=== PATIENT | female | born 1960 | race Hispanic/Latino ===

== ENCOUNTER 2018-11-11 00:37 | Inpatient (IN) | payer OTHER ==
[2018-11-11] MEDS ORDERED: DILAUDID IV ONE (01:00)
[2018-11-11] MEDS ORDERED: NACL 0.9% 1000 ML 1,000 ML IV ONE (01:00)
[2018-11-11] MEDS ORDERED: ZOFRAN IV ONE (01:00)
--- NOTE | 2018-11-11 01:03 | Emergency Department Report ---
ED Abdominal Pain HPI - General Chief Complaint: Abdominal Pain Stated Complaint: ABD PAIN Time Seen by Provider: 11/11/18 00:51 Source: patient, EMS (ems notes not available at time of chart dictation) Mode of arrival: Stretcher Limitations: Physical Limitation - History of Present Illness Initial Comments: This is a 58-year-old female. The patient is not known to this provider previously. Reports a history of diabetes, high cholesterol, history of incisional hernia, secondary to , and possible . Patient presents to the emergency room today with complaint of nontraumatic right-sided abdominal pain. The pain is present for the past 30-36 hours. It is sharp and constant, associated with nausea and vomiting. There are no i rritative urinary symptoms, the patient denies fever, the patient reports that she defecated today. She has never had pain like this before. The pain does not radiate anywhere. It increases with palpation, twisting, range of motion, and decreases with rest. Denies headache, neck pain, chest pain, focal extremity weakness, numbness. MD Complaint: abdominal pain, flank pain -: Gradual Location: RUQ, RLQ, R flank Radiation: none Severity scale (0 -10): 10 Quality: cramping, stabbing Consistency: other Improves With: medication Worsens With: movement Associated Symptoms: nausea, vomiting, anorexia. denies: diarrhea, fever, chills, constipation, dysuria, hematemesis, hematochezia, melena, hematuria, syncope - Related Data Allergies Allergy/AdvReac Type Severity Reaction Status Date / Time Penicillins Allergy Anaphylaxis Verified 11/11/18 00:44 ED Review of Systems ROS: Stated complaint: ABD PAIN Other details as noted in HPI Constitutional: malaise. denies: fever Eyes: denies: eye discharge ENT: denies: epistaxis Respiratory: denies: cough Cardiovascular: denies: chest pain Gastrointestinal: abdominal pain, nausea, vomiting Genitourinary: denies: dysuria Musculoskeletal: myalgia Skin: denies: lesions Neurological: weakness Psychiatric: anxiety ED Past Medical Hx - Past Medical History Previous Medical History?: Yes Hx Diabetes: Yes (type 2) - Surgical History Past Surgical History?: Yes Additional Surgical History: ovarian cancer, Hysterectomy, hernia - Social History Smoking Status: Never Smoker Substance Use Type: Marijuana ED Physical Exam - General Limitations: No Limitations, Physical Limitation General appearance: alert, in distress, obese - Head Head exam: Present: atraumatic, normocephalic - Eye Eye exam: Present: normal appearance, EOMI. Absent: nystagmus - ENT ENT exam: Present: normal exam, normal orophraynx, mucous membranes moist, normal external ear exam - Neck Neck exam: Present: normal inspection, full ROM. Absent: tenderness, meningismus - Respiratory Respiratory exam: Present: normal lung sounds bilaterally. Absent: respiratory distress - Cardiovascular Cardiovascular Exam: Present: regular rate, normal rhythm, normal heart sounds. Absent: bradycardia, tachycardia, irregular rhythm, systolic murmur, diastolic murmur, rubs, gallop - GI/Abdominal GI/Abdominal exam: Present: soft, tenderness, guarding (voluntary guarding noted in the right flank). Absent: distended, rebound, rigid, pulsatile mass - Extremities Exam Extremities exam: Present: normal inspection, full ROM, other (2+ pulses noted in the bilateral upper, lower extremities. Compartments soft. No long bony tenderness. The pelvis is stable.). Absent: calf tenderness - Back Exam Back exam: Present: normal inspection, full ROM. Absent: tenderness, CVA tenderness (R), paraspinal tenderness, vertebral tenderness - Neurological Exam Neurological exam: Present: alert, other (Extraocular movements intact. Tongue midline. No facial droop. Facial sensation intact to light touch in the V1, V2, V3 distribution bilaterally. 5 and 5 strength in 4 extremities.. Sensation is intact to light touch in 4 extremities.). Absent: motor sensory deficit - Psychiatric Psychiatric exam: Present: anxious - Skin Skin exam: Present: warm, dry, intact, normal color. Absent: rash ED Course Vital Signs 11/11/18 11/11/18 00:55 02:00 Temperature 98.3 F Pulse Rate 79 92 H Respiratory 16 15 Rate Blood Pressure 150/112 Blood Pressure 120/68 [Left] O2 Sat by Pulse 100 99 Oximetry - Reevaluation(s) Reevaluation #1: 11/11/18 02:58 Differential diagnosis, including not limited to: Cholecystitis, pyelonephritis, renal colic, appendicitis, colitis, obstruction, volvulus, inflammatory bowel disease, phlegmon Assessment and plan: 58-year-old female with tender abdomen, nausea and vomiting. Appears uncomfortable. Screening laboratory studies reviewed, thus far unremarkable, not consistent with urinary tract infection. X-ray of the chest, abdomen, pelvis did not demonstrate evidence of perforated viscus. Patient is treated with Dilaudid, Zofran, fluids, fentanyl, and a CT scan of the abdomen and pelvis has been obtained. Interpretation pending. Reevaluation #2: 11/11/18 03:55 CT scan suggests acute appendicitis. Patient endorses anaphylactic symptoms to penicillin, and is therefore given Levaquin and metronidazole. She declines additional pain medication at this time. Discussed with general surgeon on-call, Dr. Schulte, was going to come by to evaluate the patient, and likely take the patient to the operating room. Presented case a hospital physician, Dr. Corey Garcia, who will accept the patient to the medical service, with general surgical consultation, in accordance with [facility] policies. Patient is made nothing by mouth, she is informed of her findings, and she is amenable to admission to the hospital at this point in time. ED Medical Decision Making - Lab Data Result diagrams: 11/11/18 01:27 11/11/18 01:27 Vital Signs 11/11/18 11/11/18 00:55 02:00 Temperature 98.3 F Pulse Rate 79 92 H Respiratory 16 15 Rate Blood Pressure 150/112 Blood Pressure 120/68 [Left] O2 Sat by Pulse 100 99 Oximetry Lab Results 11/11/18 11/11/18 11/11/18 Range/Units 01:27 01:27 01:27 WBC 7.7 (4.5-11.0) K/mm3 RBC 4.91 (3.65-5.03) M/mm3 Hgb 14.8 H (10.1-14.3) gm/dl Hct 44.1 H (30.3-42.9) % MCV 90 (79-97) fl MCH 30 (28-32) pg MCHC 34 (30-34) % RDW 14.1 (13.2-15.2) % Plt Count 277 (140-440) K/mm3 Lymph % (Auto) 10.5 L (13.4-35.0) % [place] % (Auto) 6.6 (0.0-7.3) % Eos % (Auto) 0.3 (0.0-4.3) % Baso % (Auto) 0.5 (0.0-1.8) % Lymph # 0.8 L (1.2-5.4) K/mm3 [place] # 0.5 (0.0-0.8) K/mm3 Eos # 0.0 (0.0-0.4) K/mm3 Baso # 0.0 (0.0-0.1) K/mm3 Seg Neutrophils % 82.1 H (40.0-70.0) % Seg Neutrophils # 6.3 (1.8-7.7) K/mm3 PT 12.7 (12.2-14.9) Sec. INR 0.91 (0.87-1.13) APTT 21.3 L (24.2-36.6) Sec. Sodium 135 L (137-145) mmol/L Potassium 3.7 (3.6-5.0) mmol/L Chloride 96.9 L (98-107) mmol/L Carbon Dioxide 25 (22-30) mmol/L Anion Gap 17 mmol/L BUN 7 (7-17) mg/dL Creatinine 0.5 L (0.7-1.2) mg/dL Estimated GFR > 60 ml/min BUN/Creatinine Ratio 14 % Glucose 285 H (65-100) mg/dL Lactic Acid (0.7-2.0) mmol/L Calcium 9.5 (8.4-10.2) mg/dL Total Bilirubin 0.50 (0.1-1.2) mg/dL AST 12 (5-40) units/L ALT 17 (7-56) units/L Alkaline Phosphatase 96 (35-129) units/L Total Creatine Kinase 37 (30-135) units/L Total Protein 6.7 (6.3-8.2) g/dL Albumin 4.3 (3.9-5) g/dL Albumin/Globulin Ratio 1.8 % Lipase 33 (13-60) units/L Urine Color (Yellow) Urine Turbidity (Clear) Urine pH (5.0-7.0) Ur Specific [place] (1.003-1.030) Urine Protein (Negative) mg/dL Urine Glucose (UA) (Negative) mg/dL Urine Ketones (Negative) mg/dL Urine Blood (Negative) Urine Nitrite (Negative) Urine Bilirubin (Negative) Urine Urobilinogen (<2.0) mg/dL Ur Leukocyte Esterase (Negative) Urine WBC (Auto) (0.0-6.0) /HPF Urine RBC (Auto) (0.0-6.0) /HPF U Epithel Cells (Auto) (0-13.0) /HPF Blood Type Antibody Screen 11/11/18 11/11/18 11/11/18 Range/Units 01:27 01:27 02:26 WBC (4.5-11.0) K/mm3 RBC (3.65-5.03) M/mm3 Hgb (10.1-14.3) gm/dl Hct (30.3-42.9) % MCV (79-97) fl MCH (28-32) pg MCHC (30-34) % RDW (13.2-15.2) % Plt Count (140-440) K/mm3 Lymph % (Auto) (13.4-35.0) % [place] % (Auto) (0.0-7.3) % Eos % (Auto) (0.0-4.3) % Baso % (Auto) (0.0-1.8) % Lymph # (1.2-5.4) K/mm3 [place] # (0.0-0.8) K/mm3 Eos # (0.0-0.4) K/mm3 Baso # (0.0-0.1) K/mm3 Seg Neutrophils % (40.0-70.0) % Seg Neutrophils # (1.8-7.7) K/mm3 PT (12.2-14.9) Sec. INR (0.87-1.13) APTT (24.2-36.6) Sec. Sodium (137-145) mmol/L Potassium (3.6-5.0) mmol/L Chloride (98-107) mmol/L Carbon Dioxide (22-30) mmol/L Anion Gap mmol/L BUN (7-17) mg/dL Creatinine (0.7-1.2) mg/dL Estimated GFR ml/min BUN/Creatinine Ratio % Glucose (65-100) mg/dL Lactic Acid 1.30 (0.7-2.0) mmol/L Calcium (8.4-10.2) mg/dL Total Bilirubin (0.1-1.2) mg/dL AST (5-40) units/L ALT (7-56) units/L Alkaline Phosphatase (35-129) units/L Total Creatine Kinase (30-135) units/L Total Protein (6.3-8.2) g/dL Albumin (3.9-5) g/dL Albumin/Globulin Ratio % Lipase (13-60) units/L Urine Color Yellow (Yellow) Urine Turbidity Clear (Clear) Urine pH 5.0 (5.0-7.0) Ur Specific [place] 1.029 (1.003-1.030) Urine Protein 30 mg/dl (Negative) mg/dL Urine Glucose (UA) >500 (Negative) mg/dL Urine Ketones 80 (Negative) mg/dL Urine Blood Negative (Negative) Urine Nitrite Negative (Negative) Urine Bilirubin Negative (Negative) Urine Urobilinogen < 2.0 (<2.0) mg/dL Ur Leukocyte Esterase Negative (Negative) Urine WBC (Auto) 4.0 (0.0-6.0) /HPF Urine RBC (Auto) 2.0 (0.0-6.0) /HPF U Epithel Cells (Auto) 1.0 (0-13.0) /HPF Blood Type A POSITIVE Antibody Screen Negative - Radiology Data Radiology results: report reviewed, image reviewed [facility] [address] [place] [address] XRay Report Signed Patient: NIKUNJ AIKEN MR#: [id number] : 1960 Acct:[id number] Age/Sex: 58 / F ADM Date: 11/11/18 Loc: ED Attending Dr: Ordering Physician: NORRIS GREEN MD Date of Service: 11/11/18 Procedure(s): XR abd series w cxr 1V Accession Number(s): [id number] cc: NORRIS GREEN MD Fluoro Time In Minutes: FINAL REPORT PROCEDURE: XR ABD SERIES W CXR 1V TECHNIQUE: Abdominal series complete, including supine and upright AP views of the abdomen and frontal chest. HISTORY: abd pain COMPARISON: No prior studies are available for comparison. FINDINGS: Heart: Normal. Mediastinum/Vessels: Normal. Lungs/Pleural space: There are fibrotic changes at the left lung base. There are no infiltrates.. Bowel gas pattern: There is no bowel obstruction or fecal impaction. There is no bowel wall thickening.. Masses or calcifications: None. Bony structures: No acute osseous abnormality. Other: No free intraperitoneal air. IMPRESSION: No acute abnormality. Transcribed By: CO Dictated By: CHELA WOODSON MD Electronically Authenticated By: CHELA WOODSON MD Signed Date/Time: 11/11/18 0147 Referring Physician: NORRIS GREEN Patient Name: NIKUNJ AIKEN Date of : 1960 Sex: Female Report Date: 2018-11-11 Report Status: Finalized [place] [id number] Cat Scan Report Signed Patient: NIKUNJ AIKEN MR#: [id number] : 1960 Acct:[id number] Age/Sex: 58 / F ADM Date: 11/11/18 Loc: ED Attending Dr: Ordering Physician: NORRIS GREEN MD Date of Service: 11/11/18 Procedure(s): CT abdomen pelvis w con Accession Number(s): [id number] cc: NORRIS GREEN MD FINAL REPORT PROCEDURE: CT ABDOMEN PELVIS W CON TECHNIQUE: Computerized axial tomography of the abdomen and pelvis was performed after the IV injection of iodinated nonionic contrast. HISTORY: rigth sided abd pain COMPARISON: No prior studies are available for comparison. FINDINGS: Visualized lower thorax: No significant abnormality. Liver: Normal size and attenuation. Spleen: Normal size and attenuation. Gallbladder and biliary system: Normal. Pancreas: Normal. Adrenals: Normal. Kidneys: Normal. GI tract: The appendix is distended and fluid-filled measuring up to 13 millimeters in diameter. There inflammation of the surrounding fat. Findings are consistent with acute appendicitis. There is no perforation. The appendix is positioned near the umbilicus. There is no bowel obstruction, colitis or enteritis. There are diverticula of the sigmoid and left colon. There is no diverticulitis.. Lymph nodes and mesentery: Normal. Vasculature: Normal. Bladder: Normal. Reproductive organs: There has been a hysterectomy.. Peritoneum: There is no ascites or free air, abscess or adenopathy.. Musculoskeletal structures: No significant abnormality. Other: There is an umbilical hernia containing fat only.. IMPRESSION: Acute appendicitis. Dr. Javier was notified by telephone at 2:40 a.m. central time. Transcribed By: CO Dictated By: CHELA WOODSON MD Electronically Authenticated By: CHELA WOODSON MD Signed Date/Time: 11/11/18 8189 Critical care attestation.: If time is entered above; I have spent that time in minutes in the direct care of this critically ill patient, excluding procedure time. ED Disposition Clinical Impression: Acute appendicitis Qualifiers: Acute appendicitis type: with localized peritonitis Appendicitis gangrene presence: unspecified whether gangrene present Appendicitis perforation presence: without perforation Appendicitis abscess presence: unspecified whether abscess present Qualified Code(s): K35.30 - Acute appendicitis with localized peritonitis, without perforation or gangrene Disposition: DC-09 OP ADMIT IP TO THIS HOSP Is pt being admited?: Yes Does the pt Need Aspirin: No Condition: Good Instructions: Abdominal Pain (ED) Referrals: KYLE ZEPEDA MD [Primary Care Provider] - 3-5 Days
--- NOTE | 2018-11-11 01:47 | XRay Report ---
FINAL REPORT PROCEDURE: XR ABD SERIES W CXR 1V TECHNIQUE: Abdominal series complete, including supine and upright AP views of the abdomen and front al chest. HISTORY: abd pain COMPARISON: No prior studies are available for comparison. FINDINGS: Heart: Normal. Mediastinum/Vessels: Normal. Lungs/Pleural space: There are fibrotic changes at the left lung base. There are no infiltrates.. Bowel gas pattern: There is no bowel obstruction or fecal impaction. There is no bowel wall thickenin g.. Masses or calcifications: None. Bony structures: No acute osseous abnormality. Other: No free intraperitoneal air. IMPRESSION: No acute abnormality.
[2018-11-11 01:49] LABS: Hematocrit 44.1 % (30.3-42.9); Hemoglobin 14.8 gm/dl (10.1-14.3); Mean Corpuscular Volume 90 fl (79-97); Red Blood Count 4.91 M/mm3 (3.65-5.03)
[2018-11-11 01:50] LABS: Basophils % (Auto) 0.5 % (0.0-1.8); Eosinophils % (Auto) 0.3 % (0.0-4.3); Lymphocytes # (Auto) 0.8 K/mm3 (1.2-5.4); Lymphocytes % (Auto) 10.5 % (13.4-35.0); Mean Corpuscular HGB Conc 34 % (30-34); Monocytes # (Auto) 0.5 K/mm3 (0.0-0.8); Monocytes % (Auto) 6.6 % (0.0-7.3); Platelet Count 277 K/mm3 (140-440); Red Cell Distribution Width 14.1 % (13.2-15.2)
[2018-11-11] MEDS ORDERED: SUBLIMAZE IV ONE ×2 (01:59→04:31)
[2018-11-11] MEDS ORDERED: REGLAN IV ONE (01:59)
[2018-11-11 02:01] LABS: INR 0.91 (0.87-1.13); Partial Thromboplastin Time 21.3 Sec. (24.2-36.6)
[2018-11-11 02:09] LABS: Alanine Aminotransferase 17 units/L (7-56); Albumin 4.3 g/dL (3.9-5); BUN/Creatinine Ratio 14; Blood Urea Nitrogen 7 mg/dL (7-17); Calcium 9.5 mg/dL (8.4-10.2); Hemolysis Index 8
[2018-11-11 02:42] LABS: Bilirubin,Urine Negative (Negative); Blood,Urine Negative (Negative); Color,Urine Yellow (Yellow)
[2018-11-11 02:43] LABS: Urobilinogen,Urine < 2.0 mg/dL (<2.0)
[2018-11-11] MEDS ORDERED: LEVAQUIN 750MG/150ML 750 MG/150 ML BAG IV ONE (03:42)
[2018-11-11] MEDS ORDERED: FLAGYL 500 MG/100 ML 500 MG/100 ML BAG IV ONE (03:42)
--- NOTE | 2018-11-11 03:44 | Cat Scan Report ---
FINAL REPORT PROCEDURE: CT ABDOMEN PELVIS W CON TECHNIQUE: Computerized axial tomography of the abdomen and pelvis was performed after the IV inject ion of iodinated nonionic contrast. HISTORY: rigth sided abd pain COMPARISON: No prior studies are available for comparison. FINDINGS: Visualized lower thorax: No significant abnormality. Liver: Normal size and attenuation. Spleen: Normal size and attenuation. Gallbladder and biliary system: Normal. Pancreas: Normal. Adrenals: Normal. Kidneys: Normal. GI tract: The appendix is distended and fluid-filled measuring up to 13 millimeters in diameter. Ther e inflammation of the surrounding fat. Findings are consistent with acute appendicitis. There is no p erforation. The appendix is positioned near the umbilicus. There is no bowel obstruction, colitis or enteritis. There are diverticula of the sigmoid and left co slime. There is no diverticulitis.. Lymph nodes and mesentery: Normal. Vasculature: Normal. Bladder: Normal. Reproductive organs: There has been a hysterectomy.. Peritoneum: There is no ascites or free air, abscess or adenopathy.. Musculoskeletal structures: No significant abnormality. Other: There is an umbilical hernia containing fat only.. IMPRESSION: Acute appendicitis. Dr. Javier was notified by telephone at 2:40 a.m. central time.
[2018-11-11] MEDS ORDERED: ZOFRAN IV PRN (04:20)
[2018-11-11] MEDS ORDERED: TYLENOL PR PRN (04:23)
[2018-11-11] MEDS ORDERED: D50W (25GM) Syringe IV PRN (04:24)
--- NOTE | 2018-11-11 04:39 | History and Physical Report ---
History of Present Illness Date of examination: 11/11/18 Date of admission: 11/11/2018 Chief complaint: Chief complaint is abdominal pain History of present illness: History of present illness, patient is a 58-year-old female who has been having right lower quadrant abdominal pain going on for about 24 hours, pain is severe in intensity and was associated with nausea but no vomiting. There is also associated history of chills but no fever, patient denied history of diarrhea or constipation and said that the pain became progressively worse and this made her come to the emergency room. Past History Past Medical History: cancer, diabetes, hyperlipidemia Past Surgical History: hysterectomy, hernia repair Social history: lives with family, other (USES [employer]) Family history: no significant family history Medications and Allergies Allergies Allergy/AdvReac Type Severity Reaction Status Date / Time Penicillins Allergy Anaphylaxis Verified 11/11/18 00:44 Active Meds: Active Medications Acetaminophen (Tylenol) 650 mg [place] Q4H PRN PRN Reason: Fever >101 Dextrose (D50w (25gm) Syringe) 50 ml IV PRN PRN PRN Reason: Hypoglycemia Hydromorphone HCl (Dilaudid) 1 mg IV Q4H PRN PRN Reason: Pain , Severe (7-10) Levofloxacin/Dextrose (Levaquin 750mg/150ml) 750 mg in 150 mls @ 100 mls/hr IV ONCE ONE Stop: 11/11/18 05:11 Levofloxacin/Dextrose (Levaquin 750mg/150ml) 750 mg in 150 mls @ 100 mls/hr IV Q24HR VICTORIA; Protocol Metronidazole (Flagyl 500 Mg/100 Ml) 500 mg in 100 mls @ 100 mls/hr IV Q8HR VICTORIA; Protocol Sodium Chloride (Nacl 0.9% 1000 Ml) 1,000 mls @ 100 mls/hr IV DIRECT VICTORIA Insulin Human Regular (Humulin R) 0 units SUB-Q Q4HR VICTORIA; Protocol Ondansetron HCl (Zofran) 4 mg IV Q8H PRN PRN Reason: Nausea And Vomiting Review of Systems Constitutional: chills, no weight loss, no weight gain, no fever, no sweats, no night sweats, no weakness, no malaise, no lethargy, no daytime sleepiness Eyes: bilateral: other (NO BILATERAL EYE SYMPTOMS) Ears, nose, mouth and throat: no ear discharge, no dental pain, no mouth pain, no dysphagia, no headache Breasts: deferred Cardiovascular: no chest pain, no syncope, no lightheadedness, no shortness of breath, no high blood pressure, no leg edema Respiratory: no cough, no hemoptysis, no shortness of breath, no dyspnea on exertion, no congestion, no wheezing, no home oxygen Gastrointestinal: abdominal pain, nausea, no vomiting, no diarrhea, no constipation, no change in bowel habits, no hematemesis, no coffee ground emesis, no melena, no hematochezia, no loss of appetite, no early satiety, no heartburn, no indigestion, no belching, no jaundice, no dyspepsia/bloating, no early satiety, no lactose intolerance Genitourinary Female: no pelvic pain, no urinary frequency, no stress incontin ence, no hematuria, no vaginal itching, no vaginal discharge, no mood problems, no hot flashes, no kidney stones Rectal: no pain, no hemorrhoids, no flatulence Musculoskeletal: no neck stiffness, no low back pain, no leg numbness/tingling, no morning stiffness, no muscle weakness, no muscle cramps, no myalgias, no atrophy, no limitation of motion, no fractures, no loss of height, no prior amputations Integumentary: no rash, no pruritis, no redness, no sores, no wounds, no jaundice, no boils, no growths, no darkening of skin, no depigmentation, no acne, no dryness, no color changes, no change in hair/nails, no brittle nails, no hirsutism Neurological: no parathesias, no numbness, no seizures, no syncope, no headaches, no convulsions, no change in speech, no confusion, no memory loss, no motor disturbance, no sensory deficit, no loss of vision, no burning pain Psychiatric: no insomnia, no hypersomnia, no change in appetite, no suicidal ideation, no depression, no hopelessness, no anxiety attacks, no confusion, no irritability, no sadness/tearfullness Endocrine: no polyphagia, no polydipsia, no polyuria, no nocturia, no excessive sweating, no palpatations, no low blood sugars, no recent glucocorticoid use Hematologic/Lymphatic: no easy bruising, no easy bleeding, no lymphedema Allergic/Immunologic: no urticaria, no anaphylaxis, no angioedema Exam - Constitutional Vitals: Temp Pulse Resp BP Pulse Ox 98.3 F 103 H 19 116/72 94 11/11/18 00:55 11/11/18 04:00 11/11/18 04:00 11/11/18 04:00 11/11/18 04:00 General appearance: Present: mild distress - EENT Eyes: Present: PERRL, EOM intact. Absent: scleral icterus, mydriasis ENT: hearing intact, clear oral mucosa, no oropharyngeal erythema, no poor den tition, no thrush - Neck Neck: Present: supple, normal ROM. Absent: enlarged thyroid, carotid bruits - Respiratory Respiratory effort: normal - Cardiovascular Heart Sounds: Present: S1 & S2. Absent: gallop, systolic murmur, diastolic murmur, rub, click - Extremities Extremities: no ischemia, No edema Peripheral Pulses: within normal limits - Abdominal General gastrointestinal: Present: soft, tender, non-distended, normal bowel sounds. Absent: non-tender, distended, rigid, absent bowel sounds, hepatomegaly, splenomegaly, mass, hernia Localized gastrointestinal: tender: RUQ, rebound: RUQ Female genitourinary: Present: deferred - Rectal Rectal Exam: deferred - Integumentary Integumentary: Present: clear, warm, dry, normal turgor. Absent: erythema, jaundice, rash, clammy, pale, decreased turgor - Musculoskeletal Musculoskeletal: strength equal bilaterally - Psychiatric Psychiatric: appropriate mood/affect Results - Labs CBC & Chem 7: 11/11/18 01:27 11/11/18 01:27 Labs: Laboratory Last Values WBC 7.7 K/mm3 (4.5-11.0) 11/11/18 01:27 RBC 4.91 M/mm3 (3.65-5.03) 11/11/18 01:27 Hgb 14.8 gm/dl (10.1-14.3) H 11/11/18 01:27 Hct 44.1 % (30.3-42.9) H 11/11/18 01:27 MCV 90 fl (79-97) 11/11/18 01:27 MCH 30 pg (28-32) 11/11/18 01:27 MCHC 34 % (30-34) 11/11/18 01:27 RDW 14.1 % (13.2-15.2) 11/11/18 01:27 Plt Count 277 K/mm3 (140-440) 11/11/18 01:27 Lymph % (Auto) 10.5 % (13.4-35.0) L 11/11/18 01:27 [place] % (Auto) 6.6 % (0.0-7.3) 11/11/18 01:27 Eos % (Auto) 0.3 % (0.0-4.3) 11/11/18 01:27 Baso % (Auto) 0.5 % (0.0-1.8) 11/11/18 01:27 Lymph # 0.8 K/mm3 (1.2-5.4) L 11/11/18 01:27 [place] # 0.5 K/mm3 (0.0-0.8) 11/11/18 01:27 Eos # 0.0 K/mm3 (0.0-0.4) 11/11/18 01:27 Baso # 0.0 K/mm3 (0.0-0.1) 11/11/18 01:27 Seg Neutrophils % 82.1 % (40.0-70.0) H 11/11/18 01:27 Seg Neutrophils # 6.3 K/mm3 (1.8-7.7) 11/11/18 01:27 PT 12.7 Sec. (12.2-14.9) 11/11/18 01:27 INR 0.91 (0.87-1.13) 11/11/18 01:27 APTT 21.3 Sec. (24.2-36.6) L 11/11/18 01:27 Sodium 135 mmol/L (137-145) L 11/11/18 01:27 Potassium 3.7 mmol/L (3.6-5.0) 11/11/18 01:27 Chloride 96.9 mmol/L (98-107) L 11/11/18 01:27 Carbon Dioxide 25 mmol/L (22-30) 11/11/18 01:27 Anion Gap 17 mmol/L 11/11/18 01:27 BUN 7 mg/dL (7-17) 11/11/18 01:27 Creatinine 0.5 mg/dL (0.7-1.2) L 11/11/18 01:27 Estimated GFR > 60 ml/min 11/11/18 01:27 BUN/Creatinine Ratio 14 % 11/11/18 01:27 Glucose 285 mg/dL (65-100) H 11/11/18 01:27 Lactic Acid 1.30 mmol/L (0.7-2.0) 11/11/18 01:27 Calcium 9.5 mg/dL (8.4-10.2) 11/11/18 01:27 Total Bilirubin 0.50 mg/dL (0.1-1.2) 11/11/18 01:27 AST 12 units/L (5-40) 11/11/18 01:27 ALT 17 units/L (7-56) 11/11/18 01:27 Alkaline Phosphatase 96 units/L (35-129) 11/11/18 01:27 Total Creatine Kinase 37 units/L (30-135) 11/11/18 01:27 Total Protein 6.7 g/dL (6.3-8.2) 11/11/18 01:27 Albumin 4.3 g/dL (3.9-5) 11/11/18 01:27 Albumin/Globulin Ratio 1.8 % 11/11/18 01:27 Lipase 33 units/L (13-60) 11/11/18 01:27 Urine Color Yellow (Yellow) 11/11/18 02:26 Urine Turbidity Clear (Clear) 11/11/18 02:26 Urine pH 5.0 (5.0-7.0) 11/11/18 02:26 Ur Specific [place] 1.029 (1.003-1.030) 11/11/18 02:26 Urine Protein 30 mg/dl mg/dL (Negative) 11/11/18 02:26 Urine Glucose (UA) >500 mg/dL (Negative) 11/11/18 02:26 Urine Ketones 80 mg/dL (Negative) 11/11/18 02:26 Urine Blood Negative (Negative) 11/11/18 02:26 Urine Nitrite Negative (Negative) 11/11/18 02:26 Urine Bilirubin Negative (Negative) 11/11/18 02:26 Urine Urobilinogen < 2.0 mg/dL (<2.0) 11/11/18 02:26 Ur Leukocyte Esterase Negative (Negative) 11/11/18 02:26 Urine WBC (Auto) 4.0 /HPF (0.0-6.0) 11/11/18 02:26 Urine RBC (Auto) 2.0 /HPF (0.0-6.0) 11/11/18 02:26 U Epithel Cells (Auto) 1.0 /HPF (0-13.0) 11/11/18 02:26 Blood Type A POSITIVE 11/11/18 01:27 Antibody Screen Negative 11/11/18 01:27 Assessment and Plan - Patient Problems (1) Acute appendicitis Current Visit: Yes Status: Acute Qualifiers: Acute appendicitis type: with localized peritonitis Appendicitis gangrene presence: unspecified whether gangrene present Appendicitis perforation presence: without perforation Appendicitis abscess presence: unspecified whether abscess present Qualified Code(s): K35.30 - Acute appendicitis with localized peritonitis, without perforation or gangrene Plan to address problem: #1 patient will be admitted [facility] #2 patient will continue surgical consult with Dr. Schulte requested by the emergency room physician #3 patient will be on IV normal saline at 100ml/hr and will NPO until reviewed by the surgeon #4 patient will be on IV Levaquin 750 mg daily and IV metronidazole 500 mg every 8 hours as empiric treatment. #5 the patient will be on IV Dilaudid 1 mg every 4 hours as needed for pain and IV Zofran 4 mg every 8 FOR nausea and vomiting #6 patient will be on Tylenol 650 mg rectally every 4 hours as needed for fever and headache.
[2018-11-11] MEDS ORDERED: NACL 0.9% 1000 ML 1,000 ML ONE ×3 (05:33→08:48)
[2018-11-11] MEDS ORDERED: DIPRIVAN 10 MG/ML IV ONE ×2 (05:41→07:54)
[2018-11-11] MEDS ORDERED: DILAUDID ONE (05:41)
[2018-11-11] MEDS ORDERED: XYLOCAINE MPF 2% ONE (05:41)
[2018-11-11] MEDS ORDERED: ZEMURON IV ONE (05:47)
[2018-11-11] MEDS ORDERED: QUELICIN ONE (05:47)
[2018-11-11] MEDS ORDERED: MARCAINE 0.5% INFILTRATI ONE (05:50)
[2018-11-11] MEDS ORDERED: XYLOCAINE 1% 20 mL ONE (05:50)
[2018-11-11] MEDS ORDERED: XYLOCAINE 1% 20 mL INFILTRATI ONE (06:28)
[2018-11-11] MEDS ORDERED: MARCAINE-EPI 0.5%-1:200,000 INFILTRATI ONE ×2 (06:28→06:33)
[2018-11-11] MEDS ORDERED: BLOXIVERZ ONE (06:50)
[2018-11-11] MEDS ORDERED: ROBINUL ONE (06:50)
[2018-11-11] MEDS ORDERED: ZOFRAN ONE (06:52)
[2018-11-11] MEDS ORDERED: TORADOL ONE ×2 (07:03→08:13)
[2018-11-11] MEDS ORDERED: SUBLIMAZE ONE (07:55)
[2018-11-11] MEDS ORDERED: HumuLIN R ONE (08:33)
[2018-11-11] MEDS ORDERED: HumuLIN R IV ONE ×2 (09:00)
--- NOTE | 2018-11-11 09:31 | Operative Report ---
PREOPERATIVE DIAGNOSIS: Rule out acute appendicitis. POSTOPERATIVE DIAGNOSIS: Acute suppurative appendicitis. PROCEDURE: Emergency laparoscopic appendectomy. SURGEON: Warren Schulte MD ANESTHESIA: General. ESTIMATED BLOOD LOSS: Minimal. DRAINS: No drains. COMPLICATIONS: No complications. DESCRIPTION OF PROCEDURE: The patient was taken to the operating room, prepped and draped in usual sterile fashion. Veress needle was inserted and CO2 insufflation begun. A 5 mm trocar was inserted and camera inserted. All other trocars were inserted under direct visualization. The patient was then placed in a steep Trendelenburg left lateral decubitus position. Inspection of the right lower quadrant revealed numerous fibrin exudates around the small bowel and omentum. The area was then slowly and bluntly dissected until the cecum was identified. The tenia was then followed down to the suppurative inflamed appendix. Appendix was gently grasped with the [place]. The base of the appendix was then secured with an Endo-SHANNAN. The mesoappendix was secured with the Harmonic scalpel. The appendix was then placed in an Endopouch and brought out through the infraumbilical 12 mm port site. This trocar was then gently reinserted. The entire right lower quadrant of the abdomen was copiously irrigated and suctioned dry. The fibrin areas were swept clean with multiple 4 x 4s. Area was then once again irrigated copiously and suctioned dry. Checked for hemostasis and noted to be dry. Staple line was also noted to be secure at the appendiceal base with no evidence of oozing or bleeding. Appendix eventually was swabbed for aerobic and anaerobic cultures. The fascia at the umbilicus was closed with a [id number] 0 Vicryl suture. The repair was then inspected through the lateral 5 mm port to assure no entrapment of bowel or omentum, none were seen. Two lateral 5 mm ports were removed under direct visualization. No bleeding or oozing noted. The final 5 mm port was used to expel the CO2 and the trocar removed. The skin at all port sites was closed with subcuticular 4-0 Vicryl. A 0.5% Marcaine was infiltrated over the port site for postoperative pain relief. Steri-Strips, 2 x 2, and Tegaderms were applied. The patient tolerated the procedure well and left the OR in stable condition. JOB# [id number] RA/JARED
[2018-11-11] MEDS ORDERED: LEVAQUIN 500MG/100ML 500 MG/100 ML BAG IV SCH (10:00)
[2018-11-11] MEDS: NACL 0.9% 1000 ML 1,000 ML IV SCH (10:48)
--- NOTE | 2018-11-11 13:05 | Consultation ---
REASON FOR CONSULTATION: Rule out appendicitis. HISTORY OF PRESENT ILLNESS: The patient is a 58-year-old female, who presents to Emergency Room with recent onset of right lower quadrant abdominal pain accompanied by nausea and vomiting. PAST MEDICAL HISTORY: Pertinent for diabetes. PAST SURGICAL HISTORY: Status post TAHBSO secondary to ovarian cancer. Also, status post incisional hernia repair. ALLERGIES: ALLERGIC TO PENICILLIN, which causes a rash and her swell. MEDICATIONS: Include metformin and Valtrex. FAMILY HISTORY: " SOCIAL HISTORY: Occasional marijuana smoking. No cigarette. Denies any cigarette smoking or alcohol. PHYSICAL EXAMINATION: GENERAL: At this time reveals the patient to be awake, alert, cooperative, in moderate discomfort, but no acute distress. VITAL SIGNS: Show her to be afebrile with a temperature of 98.3, blood pressure is 116/72, pulse of 103, and respirations of 19. ABDOMEN: Examination of the abdomen reveals to be moderately obese. There is localized tenderness around the umbilical area as well as the right lower quadrant of the abdomen. Questionable incisional hernia is noted in the midline region. Bowel sounds are hypoactive. LABORATORY DATA: Lab work at present includes a CBC, which shows a white count of 7.7, H and H are 14 and 44. Electrolytes were essentially within normal limits. LFTs are also within normal limits. CT scan of the abdomen has been performed, which describes an enlarged appendix with surrounding inflammatory changes around the appendix. Appendix is described to be umbilicus. IMPRESSION: 1. At this time is that of a 58-year-old diabetic, moderately obese female. 2. Status post radical hysterectomy secondary to ovarian cancer. Presently, rule out acute appendicitis. PLAN: The plan is to proceed with laparoscopic appendectomy, possible open appendectomy. Risk, indication, and complications have been reviewed with the patient. The patient understands and has signed her consent. JOB# [id number] FP/NTS
[2018-11-11] MEDS: FLAGYL 500 MG/100 ML 500 MG/100 ML BAG IV SCH ×2 (13:09→22:00)
[2018-11-11] MEDS: HumuLIN R SUB-Q SCH ×5 (13:14→22:17)
--- NOTE | 2018-11-11 13:26 | Anesthesia Consultation ---
Anesthesia Consult and Med Hx Date of service: 11/11/18 - Airway Anesthetic Teeth Evaluation: Chipped ROM Head & Neck: Adequate Mental/Hyoid Distance: Adequate Mallampati Class: Class II Intubation Access Assessment: Probably Good - Pulmonary Exam CTA: Yes - Cardiac Exam Cardiac Exam: RRR - Pre-Operative Health Status ASA Pre-Surgery Classification: ASA2, Emergency Proposed Anesthetic Plan: General - Pulmonary Hx Smoking: Yes (marijuana) Hx Asthma: No Hx Respiratory Symptoms: No SOB: No - Cardiovascular System Hx Hypertension: No Hx Heart Attack/AMI: No - Central Nervous System CVA: No - Endocrine Hx Insulin Dependent Diabetes: Yes - Other Systems Hx Obesity: Yes
--- NOTE | 2018-11-11 13:26 | Anesthesia Day of Surgery ---
Anesthesia Day of Surgery - Day of Surgery Patient Examined: Yes Patient H&P Reviewed: Yes Patient is NPO: Yes
--- NOTE | 2018-11-11 13:27 | Post Anesthesia Evaluation ---
- Post Anesthesia Evaluation Patient Participated: Yes Airway Patent: Yes Stable Respiratory Function: Yes Nausea/Vomiting: No Temp > 96.8F: Yes Pain Manageable: Yes Adequeate Hydration: Yes Anesthesia Complications: No
--- NOTE | 2018-11-11 13:53 | Event Note ---
Date: 11/11/18 Patient seen and examined Admitted for acute appendicitis, GS consulted, planned for surgery today.
[2018-11-11] MEDS: PROTONIX IV SCH (17:26)
[2018-11-11] MEDS: DILAUDID IV PRN ×2 (17:26→22:04)
[2018-11-11] MEDS: ZOFRAN IV PRN (17:26)
[2018-11-12] MEDS: NACL 0.9% 1000 ML 1,000 ML IV SCH ×2 (01:08→12:57)
[2018-11-12 01:12] LABS: Basophils % (Auto) 0.3 % (0.0-1.8); Eosinophils % (Auto) 0.1 % (0.0-4.3); Hematocrit 35.2 % (30.3-42.9); Hemoglobin 11.4 gm/dl (10.1-14.3); Lymphocytes # (Auto) 0.9 K/mm3 (1.2-5.4); Lymphocytes % (Auto) 12.9 % (13.4-35.0); Mean Corpuscular HGB Conc 33 % (30-34); Mean Corpuscular Volume 93 fl (79-97); Monocytes # (Auto) 0.8 K/mm3 (0.0-0.8); Monocytes % (Auto) 10.2 % (0.0-7.3); Platelet Count 223 K/mm3 (140-440); Red Blood Count 3.81 M/mm3 (3.65-5.03); Red Cell Distribution Width 14.4 % (13.2-15.2)
[2018-11-12] MEDS: ZOFRAN IV PRN ×3 (01:12→17:33)
[2018-11-12 01:31] LABS: BUN/Creatinine Ratio 27; Blood Urea Nitrogen 8 mg/dL (7-17); Calcium 8.3 mg/dL (8.4-10.2); Hemolysis Index 5
[2018-11-12] MEDS: HumuLIN R SUB-Q SCH ×6 (01:32→21:33)
[2018-11-12] MEDS: DILAUDID IV PRN ×3 (04:40→14:41)
[2018-11-12] MEDS: FLAGYL 500 MG/100 ML 500 MG/100 ML BAG IV SCH ×3 (05:30→21:14)
[2018-11-12] MEDS: LEVAQUIN 500MG/100ML 500 MG/100 ML BAG IV SCH (09:25)
[2018-11-12] MEDS: PROTONIX IV SCH (09:26)
[2018-11-12] MEDS ORDERED: LEVAQUIN 750MG/150ML 750 MG/150 ML BAG IV SCH (10:00)
[2018-11-12] MEDS ORDERED: AFLURIA QUAD 2018-2019 SYRINGE IM ONE (12:00)
--- NOTE | 2018-11-12 12:15 | Progress Note ---
Assessment and Plan POD # 1 Pt states feeling well. +flatus Abd soft, non tender. hypoactive BS low h/h noted. (VSS) repeat h/h now. ice chips and po meds pending f/u h/h Laboratory Tests 11/11/18 11/12/18 01:27 00:21 WBC 7.7 7.4 Hgb 14.8 H 11.4 D Hct 44.1 H 35.2 D Selected Entries 11/12/18 07:15 Temperature 98.1 F Pulse Rate 74 Respiratory 18 Rate Blood Pressure 117/53 [Left] Objective Vital Signs - 12hr 11/12/18 11/12/18 11/12/18 00:18 04:16 07:15 Temperature 98.1 F 98.5 F 98.1 F Pulse Rate 86 89 74 Respiratory 20 20 18 Rate Blood Pressure 104/55 113/56 Blood Pressure 117/53 [Left] O2 Sat by Pulse 94 95 96 Oximetry 11/12/18 11/12/18 09:26 11:39 Temperature 98.0 F Pulse Rate 85 Respiratory 18 18 Rate Blood Pressure Blood Pressure 127/61 [Left] O2 Sat by Pulse 98 Oximetry - Labs 11/12/18 00:21 11/12/18 00:21 Diabetes panel 11/12/18 Range/Units 00:21 Sodium 133 L (137-145) mmol/L Potassium 3.9 (3.6-5.0) mmol/L Chloride 100.8 (98-107) mmol/L Carbon Dioxide 17 L D (22-30) mmol/L BUN 8 (7-17) mg/dL Creatinine 0.3 L (0.7-1.2) mg/dL Glucose 182 H (65-100) mg/dL Calcium 8.3 L (8.4-10.2) mg/dL Calcium panel 11/12/18 Range/Units 00:21 Calcium 8.3 L (8.4-10.2) mg/dL Pituitary panel 11/12/18 Range/Units 00:21 Sodium 133 L (137-145) mmol/L Potassium 3.9 (3.6-5.0) mmol/L Chloride 100.8 (98-107) mmol/L Carbon Dioxide 17 L D (22-30) mmol/L BUN 8 (7-17) mg/dL Creatinine 0.3 L (0.7-1.2) mg/dL Glucose 182 H (65-100) mg/dL Calcium 8.3 L (8.4-10.2) mg/dL Adrenal panel 11/12/18 Range/Units 00:21 Sodium 133 L (137-145) mmol/L Potassium 3.9 (3.6-5.0) mmol/L Chloride 100.8 (98-107) mmol/L Carbon Dioxide 17 L D (22-30) mmol/L BUN 8 (7-17) mg/dL Creatinine 0.3 L (0.7-1.2) mg/dL Glucose 182 H (65-100) mg/dL Calcium 8.3 L (8.4-10.2) mg/dL
--- NOTE | 2018-11-12 14:07 | Progress Note ---
Assessment and Plan (1) Acute appendicitis #1 patient will be monitored at [facility] #2 s/p appendectomy by Dr. Schulte yesterday #3 patient will be on IV normal saline at 100ml/hr and started on ice chips #4 patient will be on IV Levaquin 750 mg daily and IV metronidazole 500 mg every 8 hours as empiric treatment. #5 the patient will be on IV Dilaudid 1 mg every 4 hours as needed for pain and IV Zofran 4 mg every 8 FOR nausea and vomiting #6 patient will be on Tylenol 650 mg rectally every 4 hours as needed for fever and headache. Brief History: patient is a 58-year-old female who has been having right lower quadrant abdominal pain going on for about 24 hours, Ct abdomen/pelvis showed acute a ppendicitis, s/p laparoscopic appendectomy, waiting for surgical clearance for discharge. Hospitalist Physical exam: GENERAL: well-developed and well-nourished WF lying on bed appeared to be in no discomfort. HEENT: Normocephalic. Atraumatic. No conjunctival congestion or icterus. Patient has moist mucous membranes. NECK: Supple. Trachea midline. CHEST/LUNGS: Clear to auscultated bilaterally, breathing nonlabored. No wheezes crackles or rhonchi. HEART/CARDIOVASCULAR: Regular in rate and rhythm. S1 and S2 positive. ABDOMEN: Abdomen is soft, surgical dressing on place. Patient has normal bowel sounds. SKIN: There is no rash. Warm and dry. NEURO: No focal motor deficit. Follows command. MUSCULOSKELETAL: No joint effusion or tenderness. EXTRIMITY: No edema, no cyanosis or clubbing. PSYCH: Cooperative. Subjective Date of service: 11/12/18 Interval history: Patient seen and examined. Medical records and medication list reviewed. No acute event overnight noted by the RN. Patient denies any chest pain or difficulty breathing. Patient is complaining of abdominal pain on the surgical area Discussed plan of care at bedside with patient. Objective - Constitutional Vitals: Vital Signs - 12hr 11/12/18 11/12/18 11/12/18 04:16 07:15 09:26 Temperature 98.5 F 98.1 F Pulse Rate 89 74 Respiratory 20 18 18 Rate Blood Pressure 113/56 Blood Pressure 117/53 [Left] O2 Sat by Pulse 95 96 Oximetry 11/12/18 11/12/18 09:56 11:39 Temperature 98.0 F Pulse Rate 85 Respiratory 18 18 Rate Blood Pressure Blood Pressure 127/61 [Left] O2 Sat by Pulse 98 Oximetry - Labs CBC & Chem 7: 11/13/18 04:15 11/12/18 00:21 Labs: Abnormal lab results 11/11/18 11/11/18 11/11/18 Range/Units 10:43 14:40 18:06 Lymph % (Auto) (13.4-35.0) % [place] % (Auto) (0.0-7.3) % Lymph # (1.2-5.4) K/mm3 Seg Neutrophils % (40.0-70.0) % Sodium (137-145) mmol/L Carbon Dioxide (22-30) mmol/L Creatinine (0.7-1.2) mg/dL Glucose (65-100) mg/dL POC Glucose 241 H 239 H 201 H (70-105) Calcium (8.4-10.2) mg/dL 11/11/18 11/12/18 11/12/18 Range/Units 22:14 00:21 00:21 Lymph % (Auto) 12.9 L (13.4-35.0) % [place] % (Auto) 10.2 H (0.0-7.3) % Lymph # 0.9 L (1.2-5.4) K/mm3 Seg Neutrophils % 76.5 H (40.0-70.0) % Sodium 133 L (137-145) mmol/L Carbon Dioxide 17 L D (22-30) mmol/L Creatinine 0.3 L (0.7-1.2) mg/dL Glucose 182 H (65-100) mg/dL POC Glucose 173 H (70-105) Calcium 8.3 L (8.4-10.2) mg/dL 11/12/18 11/12/18 11/12/18 Range/Units 01:20 05:07 11:12 Lymph % (Auto) (13.4-35.0) % [place] % (Auto) (0.0-7.3) % Lymph # (1.2-5.4) K/mm3 Seg Neutrophils % (40.0-70.0) % Sodium (137-145) mmol/L Carbon Dioxide (22-30) mmol/L Creatinine (0.7-1.2) mg/dL Glucose (65-100) mg/dL POC Glucose 181 H 176 H 213 H (70-105) Calcium (8.4-10.2) mg/dL
[2018-11-12 14:28] LABS: Basophils % (Auto) 0.3 % (0.0-1.8); Eosinophils % (Auto) 0.3 % (0.0-4.3); Hematocrit 35.3 % (30.3-42.9); Hemoglobin 11.5 gm/dl (10.1-14.3); Lymphocytes # (Auto) 0.9 K/mm3 (1.2-5.4); Lymphocytes % (Auto) 11.5 % (13.4-35.0); Mean Corpuscular HGB Conc 33 % (30-34); Mean Corpuscular Volume 92 fl (79-97); Monocytes # (Auto) 0.7 K/mm3 (0.0-0.8); Monocytes % (Auto) 8.6 % (0.0-7.3); Platelet Count 236 K/mm3 (140-440); Red Blood Count 3.85 M/mm3 (3.65-5.03); Red Cell Distribution Width 14.4 % (13.2-15.2)
[2018-11-13] MEDS: DILAUDID IV PRN ×2 (00:06→04:12)
[2018-11-13] MEDS: ZOFRAN IV PRN (04:12)
[2018-11-13] MEDS: NACL 0.9% 1000 ML 1,000 ML IV SCH ×2 (04:12→17:53)
[2018-11-13 04:33] LABS: Basophils # (Auto) 0.1 K/mm3 (0.0-0.1); Basophils % (Auto) 0.9 % (0.0-1.8); Eosinophils # (Auto) 0.1 K/mm3 (0.0-0.4); Eosinophils % (Auto) 0.8 % (0.0-4.3); Hematocrit 34.3 % (30.3-42.9); Hemoglobin 11.2 gm/dl (10.1-14.3); Lymphocytes # (Auto) 0.8 K/mm3 (1.2-5.4); Lymphocytes % (Auto) 12.3 % (13.4-35.0); Mean Corpuscular HGB Conc 33 % (30-34); Mean Corpuscular Volume 91 fl (79-97); Monocytes # (Auto) 0.6 K/mm3 (0.0-0.8); Monocytes % (Auto) 8.9 % (0.0-7.3); Platelet Count 249 K/mm3 (140-440); Red Blood Count 3.79 M/mm3 (3.65-5.03); Red Cell Distribution Width 14.1 % (13.2-15.2)
[2018-11-13] MEDS: FLAGYL 500 MG/100 ML 500 MG/100 ML BAG IV SCH ×2 (05:09→13:24)
[2018-11-13] MEDS: HumuLIN R SUB-Q SCH ×6 (06:54→23:16)
--- NOTE | 2018-11-13 07:47 | Progress Note ---
Assessment and Plan POD # 2 Pt feeling better. +flatus Abd. minimally distended. non tender. hypoactive BS h/h stable begin cl liq diet d/c IV narcotics po [place] Selected Entries 11/13/18 07:08 Temperature 98.5 F Pulse Rate 79 Respiratory 18 Rate Blood Pressure 137/68 [Left] Laboratory Tests 11/12/18 11/13/18 13:19 04:15 WBC 8.0 6.7 Hgb 11.5 11.2 Hct 35.3 34.3 Objective Vital Signs - 12hr 11/12/18 11/13/18 11/13/18 22:00 00:06 04:09 Temperature 98.0 F Pulse Rate 83 Respiratory 18 18 20 Rate Respiratory 18 Rate [Abdomen] Blood Pressure 126/62 Blood Pressure [Left] O2 Sat by Pulse 96 Oximetry 11/13/18 11/13/18 11/13/18 04:12 04:42 07:08 Temperature 98.5 F Pulse Rate 79 Respiratory 20 18 18 Rate Respiratory Rate [Abdomen] Blood Pressure Blood Pressure 137/68 [Left] O2 Sat by Pulse 94 Oximetry - Labs 11/13/18 04:15 11/12/18 00:21
[2018-11-13] MEDS: LEVAQUIN 500MG/100ML 500 MG/100 ML BAG IV SCH (12:29)
[2018-11-13] MEDS: FLONASE NS SCH (12:32)
[2018-11-13] MEDS: PROTONIX IV SCH (12:34)
[2018-11-13] MEDS: NORCO 5/325 PO PRN ×3 (12:34→20:14)
--- NOTE | 2018-11-13 14:40 | Progress Note ---
Assessment and Plan / Acute appendicitis - s/p appendectomy by Dr. Schulte on 11/11/18 - patient will be on IV normal saline at 100ml/hr and started on clear liquid diet by surgeon today, no bowel movement yet - patient was placed on IV Levaquin 750 mg daily and IV metronidazole 500 mg every 8 hours as empiric treatment. Will stop all antibiotics today - the patient will be on by mouth Lortab every 4 hours as needed for pain and IV Zofran 4 mg every 8 FOR nausea and vomiting /Diabetes mellitus type 2 Takes metformin at home, continue sliding scale of insulin for now /Hyperlipidemia, restart statin /Data prophylaxis, started on Lovenox Brief History: patient is a 58-year-old female who has been having right lower quadrant abdominal pain going on for about 24 hours, Ct abdomen/pelvis showed acute appe ndicitis, s/p laparoscopic appendectomy, waiting for surgical clearance for discharge. Hospitalist Physical exam: GENERAL: well-developed and well-nourished WF lying on bed appeared to be in no discomfort. HEENT: Normocephalic. Atraumatic. No conjunctival congestion or icterus. P atient has moist mucous membranes. NECK: Supple. Trachea midline. CHEST/LUNGS: Clear to auscultated bilaterally, breathing nonlabored. No wheezes crackles or rhonchi. HEART/CARDIOVASCULAR: Regular in rate and rhythm. S1 and S2 positive. ABDOMEN: Abdomen is soft, surgical dressing on place. Patient has normal bowel sounds. SKIN: There is no rash. Warm and dry. NEURO: No focal motor deficit. Follows command. MUSCULOSKELETAL: No joint effusion or tenderness. EXTRIMITY: No edema, no cyanosis or clubbing. PSYCH: Cooperative. Subjective Date of service: 11/13/18 Interval history: Patient seen and examined. Medical records and medication list reviewed. No acute event overnight noted by the RN. Patient denies any chest pain or difficulty breathing. Patient is complaining of abdominal pain on the surgical area Started on clear liquid diet today Discussed plan of care at bedside with patient. Objective - Constitutional Vitals: Vital Signs - 12hr 11/13/18 11/13/18 11/13/18 04:09 04:12 04:42 Temperature 98.0 F Pulse Rate 83 Respiratory 20 20 18 Rate Blood Pressure 126/62 Blood Pressure [Left] O2 Sat by Pulse 96 Oximetry 11/13/18 11/13/18 07:08 12:17 Temperature 98.5 F 97.9 F Pulse Rate 79 90 Respiratory 18 18 Rate Blood Pressure Blood Pressure 137/68 130/66 [Left] O2 Sat by Pulse 94 97 Oximetry - Labs CBC & Chem 7: 11/13/18 04:15 11/12/18 00:21 Labs: Abnormal lab results 11/12/18 11/12/18 11/13/18 Range/Units 16:45 21:18 04:15 Lymph % (Auto) 12.3 L (13.4-35.0) % [place] % (Auto) 8.9 H (0.0-7.3) % Lymph # 0.8 L (1.2-5.4) K/mm3 Seg Neutrophils % 77.1 H (40.0-70.0) % POC Glucose 183 H 234 H (70-105) 11/13/18 11/13/18 Range/Units 06:18 11:25 Lymph % (Auto) (13.4-35.0) % [place] % (Auto) (0.0-7.3) % Lymph # (1.2-5.4) K/mm3 Seg Neutrophils % (40.0-70.0) % POC Glucose 240 H 179 H (70-105)
[2018-11-13] MEDS ORDERED: PRAVACHOL PO SCH (22:00)
[2018-11-13] MEDS ORDERED: LOVENOX SUB-Q SCH (22:00)
[2018-11-14] MEDS: NORCO 5/325 PO PRN ×2 (01:18→09:00)
[2018-11-14] MEDS: HumuLIN R SUB-Q SCH ×4 (01:24→13:11)
[2018-11-14 05:17] LABS: BUN/Creatinine Ratio 8; Blood Urea Nitrogen 3 mg/dL (7-17); Calcium 8.7 mg/dL (8.4-10.2); Hemolysis Index 4
[2018-11-14 07:29] VITALS: BP 136/61
[2018-11-14] MEDS ORDERED: K-DUR PO ONE ×3 (08:00→13:00)
[2018-11-14] MEDS: PROTONIX IV SCH (08:59)
[2018-11-14] MEDS ORDERED: NON-FORMULARY (Simvastatin [Zocor] 10 MG) PO SCH (10:00)
--- NOTE | 2018-11-14 10:36 | Progress Note ---
Assessment and Plan POD # 3 Pt feeling well without compl. german cl liq diet Abd soft, non tender surgically stable full liq diet may d/c today if diet german advance to reg diet at home in am.. correct K Levaquin & Flagyl po x 4 more days pain meds rto this Tues Selected Entries 11/14/18 07:06 Temperature 98.2 F Pulse Rate 79 Respiratory 18 Rate Blood Pressure 136/61 Laboratory Tests 11/14/18 04:17 Potassium 3.0 L D Objective Vital Signs - 12hr 11/14/18 11/14/18 11/14/18 02:18 06:26 07:06 Temperature 98.8 F 98.2 F Pulse Rate 88 79 Respiratory 18 18 18 Rate Blood Pressure 136/61 Blood Pressure 130/72 [Left] O2 Sat by Pulse 96 Oximetry - Labs 11/13/18 04:15 11/14/18 04:17 Diabetes panel 11/14/18 Range/Units 04:17 Sodium 139 (137-145) mmol/L Potassium 3.0 L D (3.6-5.0) mmol/L Chloride 101.9 (98-107) mmol/L Carbon Dioxide 25 D (22-30) mmol/L BUN 3 L (7-17) mg/dL Creatinine 0.4 L (0.7-1.2) mg/dL Glucose 207 H (65-100) mg/dL Calcium 8.7 (8.4-10.2) mg/dL Calcium panel 11/14/18 Range/Units 04:17 Calcium 8.7 (8.4-10.2) mg/dL Pituitary panel 11/14/18 Range/Units 04:17 Sodium 139 (137-145) mmol/L Potassium 3.0 L D (3.6-5.0) mmol/L Chloride 101.9 (98-107) mmol/L Carbon Dioxide 25 D (22-30) mmol/L BUN 3 L (7-17) mg/dL Creatinine 0.4 L (0.7-1.2) mg/dL Glucose 207 H (65-100) mg/dL Calcium 8.7 (8.4-10.2) mg/dL Adrenal panel 11/14/18 Range/Units 04:17 Sodium 139 (137-145) mmol/L Potassium 3.0 L D (3.6-5.0) mmol/L Chloride 101.9 (98-107) mmol/L Carbon Dioxide 25 D (22-30) mmol/L BUN 3 L (7-17) mg/dL Creatinine 0.4 L (0.7-1.2) mg/dL Glucose 207 H (65-100) mg/dL Calcium 8.7 (8.4-10.2) mg/dL
--- NOTE | 2018-11-14 10:44 | Discharge Summary ---
Providers - Providers Date of Admission: 11/12/18 14:51 Date of discharge: 11/14/18 Attending physician: ERNESTO TONEY 11/11/18 03:42 Consult to Physician [CONS] Urgent Comment: NOTIFIED Consulting Provider: DAMASO SCHULTE Physician Instructions: Reason For Exam: appendicitis Primary care physician: KYLE ZEPEDA Hospitalization Reason for admission: right mid abdominal pain Condition: Good Pertinent studies: CT of the abdomen and pelvis Procedures: Laparoscopic appendectomy Hospital course: Acute suppurative appendicitis - s/p lap. appendectomy by Dr. Schulte on 11/11/18 - Postop day 3 Doing well. Tolerating full liquids She is afebrile and H/H is stable Discussed with Dr. Schulte She was cleared for discharge per Surgery recommendations patient will be discharged on Levaquin and Flagyl for 5 more days [place] 5/325 #20 Diabetes mellitus type 2 Takes metformin 500 mg at home States her sugars are always high Reviewed Accu-Cheks Discussed with patient Increase metformin to 1000 mg twice a day Add glimepiride 2 mg daily Monitor blood sugars and follow-up with PCP in one week Hyperlipidemia, continue statin Hypokalemia: Most likely secondary to IV fluids Total of 60 mEq of potassium was administered prior to discharge Brief History: patient is a 58-year-old female who has been having right lower quadrant abdominal pain going on for about 24 hours, Ct abdomen/pelvis showed acute appendicitis, s/p laparoscopic appendectomy Disposition: TO HOME OR SELFCARE Time spent for discharge: 38 min Core Measure Documentation - Palliative Care Palliative Care/ Comfort Measures: Not Applicable - Core Measures Any of the following diagnoses?: none Exam - Constitutional Vitals: Temp Pulse Resp BP Pulse Ox 98.2 F 79 18 136/61 96 11/14/18 07:06 11/14/18 07:06 11/14/18 07:06 11/14/18 07:06 11/14/18 07:06 General appearance: Present: no acute distress, well-nourished - EENT Eyes: Present: PERRL, EOM intact ENT: hearing intact, clear oral mucosa - Neck Neck: Present: supple, normal ROM, masses or JVD - Respiratory Respiratory effort: normal Respiratory: bilateral: CTA - Cardiovascular Rhythm: regular Heart Sounds: Present: S1 & S2 - Extremities Extremities: No edema - Abdominal General gastrointestinal: Present: soft, tender (RLQ). Absent: hepatomegaly, splenomegaly Female genitourinary: Present: deferred - Rectal Rectal Exam: deferred - Integumentary Integumentary: Present: clear - Musculoskeletal Musculoskeletal: strength equal bilaterally - Psychiatric Psychiatric: appropriate mood/affect - Neurologic Neurologic: no focal deficits Plan Activity: no restrictions Weight Bearing Status: Full Weight Bearing Diet: regular, low fat, diabetic (advance as tolerated) Wound: keep clean and dry Follow up with: KYLE ZEPEDA MD [Primary Care Provider] - 3-5 Days DAMASO SCHULTE MD [Staff Physician] - 7 Days Prescriptions: Glimepiride 1 mg PO DAILY #30 tablet HYDROcodone/APAP 5-325 [[place] 5-325 mg TAB] 1 each PO Q6HR PRN #20 tablet PRN Reason: Pain, Moderate (4-6) Metformin HCl 1,000 mg PO BID #60 tablet
[2018-11-14] MEDS: FLONASE NS SCH (13:14)
[2018-11-15] MEDS ORDERED: PROTONIX PO SCH (10:00)
== END 2018-11-14 13:40 | disposition home or self-care (01) | DRG 342 ==
LOC: ED 00:37 → 3B-SURG 04:18 → OBSVTOIN 11-12 14:51
PROVIDERS: ADMIT Internal Medicine; ATTEND Internal Medicine
PROC: 0DTJ4ZZ Resection of Appendix, Percutaneous Endoscopic Approach (ICD-10-PCS; principal; 2018-11-11)
DX: K35.30 Acute appendicitis with localized peritonitis, without perforation or gangrene (principal); E87.1 Hypo-osmolality and hyponatremia; F12.90 Cannabis use, unspecified, uncomplicated; E11.9 Type 2 diabetes mellitus without complications; E66.9 Obesity, unspecified; E78.5 Hyperlipidemia, unspecified; E87.6 Hypokalemia; Z90.710 Acquired absence of both cervix and uterus; Z88.0 Allergy status to penicillin; Z79.4 Long term (current) use of insulin; Z68.30 Body mass index [BMI] 30.0-30.9, adult; Z85.43 Personal history of malignant neoplasm of ovary; Z79.84 Long term (current) use of oral hypoglycemic drugs
CPT/HCPCS: 36415; 74022; 74177; 80048; 80053; 81001; 82140; 82550; 82962; 83690; 85025; 85610; 85730; 86850; 86900; 86901; 87075; 87076; 87116; 87186; 88304; 90686; G0378; A9270-GY; C9113; J0330; J1170; J1650; J1815; J1885; J1956; J2405; J2704; J2710; J2765; J3010; J7030; Q9967